=== PATIENT | male | born 1965 | race African-American/Black ===

== ENCOUNTER 2022-08-17 04:57 | Emergency (ER) | payer MEDICAID ==
[~2022-08-17] VITALS: Ht 185.4 cm; Wt 100.0 kg
[2022-08-17 04:59] VITALS: BP 162/116
== END 2022-08-17 06:26 | disposition left against medical advice (07) ==
LOC: ER 04:57
DX: Z53.21 Procedure and treatment not carried out due to patient leaving prior to being seen by health care provider (principal)
CPT/HCPCS: 99281